=== PATIENT | male | born 1940 | race Caucasian/White ===

== ENCOUNTER 2021-01-19 11:53 | Emergency (ER) | payer OTHER ==
[~2021-01-19] VITALS: Ht 180.3 cm; Wt 65.8 kg
--- NOTE | ~2021-01-19 | EMS ---
[place] [id number] EMS Patient Care Report Name: NOAH VANCE Room #: DEP SILVANO Clement#: [id number] Admission: 01/19/21 Attend Phys: Discharge: 01/19/21 Date of : 44 Report #: [id number] THIS REPORT FOR: //name// Report Transmitted: 01/20/2021 13:18 EMS Care Summary [place], [place]/[facility] Incident [id number] @ 01/19/2021 10:56 Incident Location [address] [place] [address] Patient NOAH VANCE Male, 80 Years 1940 Patient Address [address] [place] [address] Patient History Dementia,Alzheimer's, Patient Allergies No known allergies, Patient Medications Citalopram, Donepezil, Omeprazole, Levetiracetam, Chief Complaint Upset Disposition Transported No Lights/[place] Dispatch Reason Falls Transported To [facility] Narrative Nurse at care center stated pt had been agitated because he was told that he had to go to the hospital to be evaluated. Nurse stated pt has a history of Alzheimer with a normal gcs of 14. Pt stated that he did [place] [address] EMS Patient Care Report Name: NOAH VANCE Room #: DEP [place]#: [id number] Admission: 01/19/21 Attend Phys: Discharge: 01/19/21 Date of : 44 Report #: [id number] hospital and be left alone. Pt with no other complaints to ems. Found pt standing in room with staff with no sign of distressed noted. Pt stated he was upset and wanted to be left alone with his dog and not to go to the hospital. Pt is a gcs of 14 which is pt normal loc. Transported pt to [facility] on stretcher. No changes in route and pt received by RN in ER. Initial Vitals @11:17P: 66,R: 20,BP: 124/74,Pain: 0/10,GCS: 14,SpO2: 100,Revised Trauma: 12, @11:47P: 66,R: 18,BP: 124/70,Pain: 0/10,GCS: 14,SpO2: 100,Revised Trauma: 12, Assessments @11:59MENTAL:Event Oriented,Confused,Person Oriented,SKIN:HEENT:Head/Face: No Abnormalities,Neck/Airway: No Abnormalities,LUNG SOUNDS:General: No Abnormalities,ABDOMEN:General: No Abnormalities,PELVIS//GI:No Abnormalities,EXTREMITIES:Capillary Refill: Right Upper: < 2 Sec,Left Arm: No Abnormalities,Right Arm: No Abnormalities,Left Leg: No Abnormalities,Right Leg: No Abnormalities,PULSE:Radial: 2+ Normal,NEURO:No Abnormalities,@12:08MENTAL:Event Oriented,Person Oriented,Confused,SKIN:HEENT:Head/Face: No Abnormalities,Neck/Airway: No Abnormalities,LUNG SOUNDS:General: No Abnormalities,Left Upper: No Abnormalities,Right Upper: No Abnormalities,Left Lower: No Abnormalities,Right Lower: No Abnormalities,ABDOMEN:General: No Abnormalities,Left Upper: No Abnormalities,Right Upper: No Abnormalities,Left Lower: No Abnormalities,Right Lower: No Abnormalities,PELVIS//GI:No Abnormalities,EXTREMITIES:Capillary Refill: Right Upper: < 2 Sec,Left Arm: No Abnormalities,Right Arm: No Abnormalities,Left Leg: No Abnormalities,Right Leg: No Abnormalities,PULSE:Radial: 2+ Normal,NEURO:No Abnormalities, Impression Behavioral/psychiatric episode Procedures @11:13BLS AssessmentResponse: Unchanged Timeline 10:55,Dispatch Notified 10:56,Call Received 10:56,Dispatched 10:57,En Route 11:11,On Scene 11:13,At Patient 11:13,BLS Assessment,Response: Unchanged 11:17,BP: 124/74 M,PULSE: 66,RR: 20 R,SPO2: 100 Ox,ETCO2: ,BG: ,PAIN: 0,GCS: 14, 11:37,[place] [address] EMS Patient Care Report Name: NOAH VANCE [facility] [id number] Admission: 01/19/21 Attend Phys: Discharge: 01/19/21 Date of : 44 Report #: [id number] 11:47,BP: 124/70 M,PULSE: 66,RR: 18 R,SPO2: 100 Ox,ETCO2: ,BG: ,PAIN: 0,GCS: 14, 11:50,At Destination 12:29,Call Closed Disclaimer v1.1 Copyright 2020 [employer] This EMS Care Summary contains data elements from the applicable legal record (which may be displayed differently). It is designed to provide pertinent information for the following purposes: continuity of care, clinical quality, and state data reporting. The complete legal record is available to ED staff and administrators of the receiving hospital in [employer]'s Patient Tracker. All data is provided "as is."
[2021-01-19] MEDS ORDERED: VITAMIN B-121000 MC2 SUBLING (12:05)
[2021-01-19] MEDS ORDERED: CELEXA 20 MG TA20 MG PO (12:05)
[2021-01-19] MEDS ORDERED: ARICEPT10 M1 PO (12:07)
[2021-01-19 12:15] VITALS: BP 119/64
== END 2021-01-19 13:07 ==
LOC: ER 11:53
DX: F03.90 Unspecified dementia, unspecified severity, without behavioral disturbance, psychotic disturbance, mood disturbance, and anxiety (principal); K21.9 Gastro-esophageal reflux disease without esophagitis; W18.39XA Other fall on same level, initial encounter; Y93.89 Activity, other specified; Y92.89 Other specified places as the place of occurrence of the external cause; Y99.8 Other external cause status

== ENCOUNTER 2021-01-21 09:42 | Emergency (ER) | payer OTHER ==
[~2021-01-21] VITALS: Ht 180.3 cm; Wt 65.8 kg
--- NOTE | ~2021-01-21 | EMS ---
[address] [address] EMS Patient Care Report Name: NOAH VANCE Room #: DEP SILVANO Clement#: [id number] Admission: 01/21/21 Attend Phys: Discharge: 01/21/21 Date of : 44 Report #: [id number] THIS REPORT FOR: //name// Report Transmitted: 01/23/2021 12:45 EMS Care Summary [place], [place]/[facility] Incident [id number] @ 01/21/2021 08:52 Incident Location [address] [place], [place] [id number] Patient NOAH VANCE Male, 80 Years 1940 Patient Address [address] [place], [place] [id number] Patient History Dementia,Alzheimer's, Patient Allergies No known allergies, Patient Medications Donepezil, Omeprazole, Citalopram, Levetiracetam, Chief Complaint si Disposition Transported No Lights/[place] Dispatch Reason Psychiatric Problem/Abnormal Behavior/Suicide Attempt Transported To [facility] Narrative ems met kc on scene. nh staff stated pt is upset that he cant go home and stated he wants to kill himself. nh staff stated pt also had a fall earlier this morning. nh staff stated pts family wants pt transported to [facility]. pt found [address] [address] EMS Patient Care Report Name: NOAH VANCE Room #: DEP ER Urbano#: [id number] Admission: 01/21/21 Attend Phys: Discharge: 01/21/21 Date of : 44 Report #: [id number] walking around apartment. pt alert and confused at baseline gcs 14. pt has no complaints. pt agreed to be transported to [facility]. pt is calm and cooperative. pt walked to ambulance. pt was transferred onto ems cot and was secured in a semi fowlers position without incident. pt reported neg loc. neg blood thinners. pt was transported non emergent. transport was uneventful and pt rested on ems cot. pt care was transferred to appropriate staff and ems goes back in service. Initial Vitals @09:29P: 78,R: 20,BP: 130/80,Pain: 0/10,GCS: 14,SpO2: 98,Revised Trauma: 12, @09:37P: 70,R: 20,BP: 128/80,GCS: 15,SpO2: 100,Revised Trauma: 12, Assessments @09:06MENTAL:No Abnormalities,SKIN:No Abnormalities,HEENT:Head/Face: No Abnormalities,Eyes: No Abnormalities,Neck/Airway: No Abnormalities,LUNG SOUNDS:General: No Abnormalities,Left Upper: No Abnormalities,Right Upper: No Abnormalities,Left Lower: No Abnormalities,Right Lower: No Abnormalities,ABDOMEN:General: No Abnormalities,Left Upper: No Abnormalities,Right Upper: No Abnormalities,Left Lower: No Abnormalities,Right Lower: No Abnormalities,PELVIS//GI:No Abnormalities,EXTREMITIES:Left Arm: No Abnormalities,Right Arm: No Abnormalities,Left Leg: No Abnormalities,Right Leg: No Abnormalities,PULSE:NEURO:No Abnormalities,@09:26MENTAL:No Abnormalities,SKIN:No Abnormalities,HEENT:Head/Face: No Abnormalities,Eyes: No Abnormalities,Neck/Airway: No Abnormalities,LUNG SOUNDS:General: No Abnormalities,Left Upper: No Abnormalities,Right Upper: No Abnormalities,Left Lower: No Abnormalities,Right Lower: No Abnormalities,ABDOMEN:General: No Abnormalities,Left Upper: No Abnormalities,Right Upper: No Abnormalities,Left Lower: No Abnormalities,Right Lower: No Abnormalities,PELVIS//GI:No Abnormalities,EXTREMITIES:Left Arm: No Abnormalities,Right Arm: No Abnormalities,Left Leg: No Abnormalities,Right Leg: No Abnormalities,PULSE:NEURO:No Abnormalities, Impression Behavioral/psychiatric episode Procedures @09:06ALS AssessmentResponse: UnchangedSucceeded Timeline 08:50,Call Received 08:50,Dispatch Notified 08:52,Dispatched 08:52,En Route 09:05,On Scene 09:06,At Patient 09:06,ALS Assessment,Response: UnchangedSucceeded, 09:28,Depart Scene [address] [address] EMS Patient Care Report Name: VANCENOAH Bah Room #: DEP SILVANO Clement#: [id number] Admission: 01/21/21 Attend Phys: Discharge: 01/21/21 Date of : 44 Report #: [id number] 09:29,BP: 130/80 M,PULSE: 78,RR: 20 R,SPO2: 98 Ox,ETCO2: ,BG: ,PAIN: 0,GCS: 14, 09:37,BP: 128/80 M,PULSE: 70,RR: 20 R,SPO2: 100 Ox,ETCO2: ,BG: ,PAIN: ,GCS: 15, 09:38,At Destination 09:55,Call Closed Disclaimer v1.1 Copyright 2020 [employer] This EMS Care Summary contains data elements from the applicable legal record (which may be displayed differently). It is designed to provide pertinent information for the following purposes: continuity of care, clinical quality, and state data reporting. The complete legal record is available to ED staff and administrators of the receiving hospital in [employer]'s Patient Tracker. All data is provided "as is."
[~2021-01-21 09:42] MED LIST: ARICEPT10 M1 PO; CELEXA 20 MG TA20 MG PO; VITAMIN B-121000 MC2 SUBLING
[2021-01-21 09:47] VITALS: BP 107/73
[2021-01-21] MEDS ORDERED: LEVETIRACETAM500 M1 PO (10:00)
[2021-01-21] MEDS ORDERED: NAMENDA 5 MG TAB5 M1 PO (10:01)
[2021-01-21] MEDS ORDERED: OMEPRAZOLE40 MG PO (10:01)
[2021-01-21] MEDS ORDERED: LYRICA25 MG PO (10:01)
[2021-01-21] MEDS ORDERED: DIPHENHIST25 M2 PO (10:02)
[2021-01-21] MEDS ORDERED: NORCO 10-325 T1 EACH PO (10:03)
[2021-01-21] MEDS ORDERED: FUROSEMIDE 20 M20 MG PO (10:03)
[2021-01-21] MEDS ORDERED: LORAZEPAM 0.50.5 MG PO (10:04)
[2021-01-21] MEDS ORDERED: ADVIL200 M3 PO (10:04)
[2021-01-21] MEDS ORDERED: ACETAMINOPHEN500 M1 PO (10:05)
[2021-01-21] MEDS ORDERED: RISPERDAL0.5 MG PO (10:05)
[2021-01-21] MEDS ORDERED: KLOR-CON 10 ER10 MEQ PO (10:05)
[2021-01-21] MEDS ORDERED: SENNA PLUS TAB1 EACH PO (10:06)
[2021-01-21 12:01] LABS: ABSOLUTE NEUTROPHILS 3.8 thou/uL (1.4-8.2); EOSINOPHILS 2.1 % (0.0-3.0); HEMATOCRIT 40.8 % (42.0-52.0); HEMOGLOBIN 13.6 gm/dL (14.0-18.0); LYMPHOCYTES 20.6 % (24.0-44.0); MCH 31.1 pg (26.0-34.0); MCHC 33.4 g/dL (28.0-37.0); MCV 93.2 fL (80.0-100.0); MONOCYTES 10.2 % (1.0-8.0); PLATELET COUNT 154 thou/uL (150-400); POLYS 66.1 % (36.0-66.0); RBC 4.38 mil/uL (4.50-6.00); RDW 13.1 % (10.5-14.5); WBC 5.8 thou/uL (4.0-11.0)
[2021-01-21 12:08] LABS: CALCIUM 9.1 mg/dL (8.5-10.1); POTASSIUM 3.7 mmol/L (3.5-5.1)
--- NOTE | 2021-01-22 11:31 | EKG ---
[address] [address] ELECTROCARDIOGRAM REPORT Name: NOAH VANCE Room #: DEP SILVANO Clement#: [id number] Admission: 01/21/21 Attend Phys: Discharge: 01/21/21 Date of : 44 Report #: [id number] [facility] ED Test Date: 2021-01-21 Test Time: 10:08:22 Pat Name: NOAH VANCE Department: Room: Gender: M Desk Editor: KMNicolas : 1940 Requested By: Dwayne Holt Order Number: [id number] MD: Sergio Grimes Measurements Intervals [place] Rate: 68 P: 13 AK: 188 QRS: 19 QRSD: 91 T: 50 QT: 394 QTc: 420 Interpretive Statements Sinus rhythm No previous ECG available for comparison Electronically Signed On 01-22-2021 11:31:11 CDT by Sergio Grimes [email or web address] <ELECTRONICALLY SIGNED> By: Sergio Grimes MD, [facility] 01/22/21 1131 1008 1008 Sergio Grimes MD, FACC /EPI
--- NOTE | 2021-01-22 21:50 | HC ---
[facility] [place] [address] CONSULTATION Name: NOAH VANCE Room #: DEP [facility].#: [id number] Admission: 01/21/21 Attend Phys: Discharge: 01/21/21 Date of : 44 Report #: [id number] THIS REPORT FOR: cc: Solo Richards MD, Christopher B. MD Kerstein,Leo Hays DO ~ DATE OF SERVICE: 01/21/2021 EMERGENCY ROOM CONSULTATION EMERGENCY ROOM ATTENDING: Dr. Holt ATTENDING PSYCHIATRIST: Leo Garcia DO REASON FOR CONSULTATION: Concern for dementia, self-injurious behavior. SOURCES OF INFORMATION: Interview with the patient, collateral from son and all present in the ER conversation with Dr. Holt, Emergency Room records. CHIEF COMPLAINT: Unspecified. HISTORY OF PRESENT ILLNESS: This is a 80-year-old tall male who has obvious dementia symptoms. He was brought to the Emergency Room from [facility] after a fall this morning and then head banging behavior observed by staff at the [facility]. The patient has had a difficult year and a half or so. His in 08/2019. Apparently, the patient has a history of absence seizures. He is medicated for it. This is what his fall was attributed to. He was placed at [facility] 2 weeks ago after otherwise living independently after his 's . There was allegation, he reported he wanted to . Today, the patient denied that to me. His son-in-law did not have concern that he was actively suicidal. There is not lethal means, like firearm, etc.; however, the patient is in assisted living. I did recommend to his son-in-law to be placed in a memory care. PAST MEDICAL HISTORY: Absence seizures, Parkinson's disease. PSYCHIATRIC HISTORY: Dementia. HOME MEDICATIONS: Known to be citalopram, cyanocobalamin, donepezil, Keppra, memantine, omeprazole, pregabalin, diphenhydramine, furosemide, hydrocodone, lorazepam, acetaminophen, potassium chloride, risperidone and sennosides. Several of those meds are on the Beers' list, which is the [place] [employer] list of medications that are problematic in older adults. I do not have his retirement medication list handy, but certainly ongoing evaluation risks versus the benefits. [address] [address] CONSULTATION Name: NOAH VANCE Room #: DEP SILVANO Clement#: [id number] Admission: 01/21/21 Attend Phys: Discharge: 01/21/21 Date of : 44 Report #: [id number] SOCIAL HISTORY: No history of tobacco, alcohol or recreational drug use. REVIEW OF SYSTEMS: From Dr. Holt in the ER: CONSTITUTIONAL: Denies fever, chills, malaise, or unexplained weight changes. EYES: Denies eye pain, visual change, or discharge. HENT: Denies hearing changes, ear drainage, ear infections, ear pain, neck pain or neck stiffness. RESPIRATORY: Denies cough, shortness of breath, hemoptysis, or respiratory distress. CARDIOVASCULAR: Denies chest pain, chest pain with exertion, or edema. GASTROINTESTINAL: Denies abdominal pain, nausea, vomiting, diarrhea. GENITOURINARY: Denies burning, frequency or dysuria. MUSCULOSKELETAL: Denies back pain, joint pain, muscle weakness or myalgias. SKIN: Denies rash. NEUROLOGIC: Denies weakness, headaches or loss of consciousness. Otherwise, a 10-point review in the ER was negative. Weight is 65.77 kilos, BMI 21.2. PHYSICAL EXAMINATION: SKIN: The patient had a laceration to his right lower leg, otherwise was unremarkable from the Emergency Room physician. VITAL SIGNS: In the ER, temperature 36.6, pulse 73, respirations 12, BP 107/73, O2 sat 99%. MUSCULOSKELETAL: The patient is recumbent, but on the Emergency Room gurney. MENTAL STATUS EXAMINATION: This is a well-developed, ill-appearing male, appearing older than stated age. Attention fair. Concentration limited. Speech soft, normal rate. Thought process is linear and goal directed. Thought content focused on returning to assisted living facility. Denied suicidal or homicidal ideation, auditory or visual type hallucinations. Some helplessness and hopelessness. Mood and affect were congruent, constricted. Memory not formally tested. Insight and judgment were limited. Fund of knowledge, no greater than average. DIAGNOSTIC DATA: EKG was done, which showed a QTc of 420, a rate of 70 beats per minute. LABORATORY DATA: Done in the ER are as follows: Hematology: Hemoglobin and hematocrit 13.6 and 40.8, white count 5.8, platelet count 154. Chemistry: Sodium 143, potassium 3.7, chloride 111, bicarbonate 25, anion gap 7, BUN 13, creatinine 1.0, estimated GFR is 72, glucose 92, calcium 9.1. COVID-19 PCR is pending. FORMULATION: A 80-year-old male brought in by EMS after a fall at assisted living facility. The patient has a history of dementia, perhaps [facility] [address] [place] [address] CONSULTATION Name: NOAH VANCE Room #: DEP ER Jagjit.#: [id number] Admission: 01/21/21 Attend Phys: Discharge: 01/21/21 Date of : 44 Report #: [id number] Parkinson's related fall and some concerning behaviors this morning. DIAGNOSES: At this time, major neurocognitive disorder, unspecified etiology. ADDITIONAL DIAGNOSES: Include Parkinson's disease, absence seizure disorder. FINDINGS: At this time, the patient is not imminent threat to self or others. He does require 24-hour care and supervision. This was emphasized to the family. The patient should not drive or operate dangerous machinery. At this time, the patient and family are not desiring a psychiatric admission. If there are repeat events, concerning behavior, they are encouraged to bring him back to the Emergency Room. Okay from a psychiatric standpoint to discharge. <ELECTRONICALLY SIGNED> By: Leo Garcia DO 01/22/21 2150 [id number] [id number] Leo Garcia DO /nt
== END 2021-01-21 14:09 | disposition home or self-care (01) ==
LOC: ER 09:42
PROVIDERS: Emergency Medicine
DX: F32.9 Major depressive disorder, single episode, unspecified (principal); K21.9 Gastro-esophageal reflux disease without esophagitis; Z79.899 Other long term (current) drug therapy; Z20.822 Contact with and (suspected) exposure to COVID-19

== ENCOUNTER 2021-01-26 13:53 | Emergency (ER) | payer OTHER ==
[~2021-01-26] VITALS: Ht 180.3 cm; Wt 65.8 kg
--- NOTE | ~2021-01-26 | EMS ---
[place] [address] EMS Patient Care Report Name: NOAH VANCE Room #: REG SILVANO Clement#: [id number] Admission: 01/26/21 Attend Phys: Discharge: Date of : 44 Report #: [id number] THIS REPORT FOR: //name// Report Transmitted: 01/26/2021 13:13 EMS Care Summary [place], [place]/[facility] Incident [id number] @ 01/26/2021 13:04 Incident Location [address] [place] [address] Patient NOAH VANCE Male, 80 Years 1940 Patient Address [address] [place] [address] Patient History Dementia,Alzheimer's, Patient Allergies No known allergies, Patient Medications Citalopram, Omeprazole, Levetiracetam, Donepezil, Chief Complaint aggression Disposition Transported No Lights/[place] Dispatch Reason Psychiatric Problem/Abnormal Behavior/Suicide Attempt Transported To [facility] Narrative staff reports pt to be eval at ER for increased aggression and SI. pt found ambulatory, angry about transfer. pt hits self and equipment but did not strike crew. pt refused VS and refused to put on a mask. transport w/o [facility] [address] [place] [address] EMS Patient Care Report Name: NOAH VANCE Room #: REG SILVANO Clement#: [id number] Admission: 01/26/21 Attend Phys: Discharge: Date of : 44 Report #: [id number] change. Initial Vitals @13:34GCS: 14, Assessments @13:29MENTAL:Confused,Person Oriented,Place Oriented,Other,SKIN:No Abnormalities,HEENT:Head/Face: No Abnormalities,LUNG SOUNDS:ABDOMEN:PELVIS//GI:EXTREMITIES:PULSE:NEURO:No Abnormalities, Impression Behavioral/psychiatric episode Procedures @13:29ALS AssessmentResponse: Unchanged@13:32StretcherResponse: Unchanged Timeline 13:00,Call Received 13:00,Dispatch Notified 13:04,Dispatched 13:04,En Route 13:25,On Scene 13:29,At Patient 13:29,ALS Assessment,Response: Unchanged 13:32,Stretcher,Response: Unchanged 13:34,BP: / M,PULSE: ,RR: R,SPO2: Ox,ETCO2: ,BG: ,PAIN: ,GCS: 14, 13:34,Depart Scene 13:51,At Destination 14:06,Call Closed Disclaimer v1.1 Copyright 2020 [employer] This EMS Care Summary contains data elements from the applicable legal record (which may be displayed differently). It is designed to provide pertinent information for the following purposes: continuity of care, clinical quality, and state data reporting. The complete legal record is available to ED staff and administrators of the receiving hospital in [employer] Patient Tracker. All data is provided "as is."
[~2021-01-26 13:53] MED LIST changes: +ACETAMINOPHEN500 M1 PO; +ADVIL200 M3 PO; +DIPHENHIST25 M2 PO; +FUROSEMIDE 20 M20 MG PO; +KLOR-CON 10 ER10 MEQ PO; +LEVETIRACETAM500 M1 PO; +LORAZEPAM 0.50.5 MG PO; +LYRICA25 MG PO; +NAMENDA 5 MG TAB5 M1 PO; +NORCO 10-325 T1 EACH PO; +OMEPRAZOLE40 MG PO; +RISPERDAL0.5 MG PO; +SENNA PLUS TAB1 EACH PO
[2021-01-26] MEDS ORDERED: DEPAKOTE SPRIN125 MG PO (13:58)
[2021-01-26] MEDS ORDERED: KEPPRA100 MG/1 M PO (13:59)
[2021-01-26 15:14] LABS: ABSOLUTE NEUTROPHILS 3.7 thou/uL (1.4-8.2); EOSINOPHILS 2.8 % (0.0-3.0); HEMATOCRIT 37.9 % (42.0-52.0); HEMOGLOBIN 12.7 gm/dL (14.0-18.0); LYMPHOCYTES 19.7 % (24.0-44.0); MCH 31.2 pg (26.0-34.0); MCHC 33.4 g/dL (28.0-37.0); MCV 93.2 fL (80.0-100.0); MONOCYTES 9.3 % (1.0-8.0); PLATELET COUNT 148 thou/uL (150-400); POLYS 67.2 % (36.0-66.0); RBC 4.07 mil/uL (4.50-6.00); RDW 13.2 % (10.5-14.5); WBC 5.5 thou/uL (4.0-11.0)
[2021-01-26 15:18] LABS: CALCIUM 8.5 mg/dL (8.5-10.1); POTASSIUM 3.7 mmol/L (3.5-5.1)
[2021-01-26 15:28] LABS: ALBUMIN 3.1 g/dL (3.4-5.0); MAGNESIUM 1.9 mg/dL (1.8-2.4); TOTAL BILIRUBIN 1.2 mg/dL (0.2-1.0); TOTAL PROTEIN 5.8 g/dL (6.4-8.2)
[2021-01-26 19:38] VITALS: BP 144/78
[2021-01-26] MEDS ORDERED: CELEXA 20 MG TA20 MG PO (23:11)
[2021-01-26] MEDS ORDERED: VITAMIN B-121000 MC2 IM ×2 (23:13→23:14)
[2021-01-26] MEDS ORDERED: ARICEPT10 M1 PO (23:15)
[2021-01-26] MEDS ORDERED: LEVETIRACETAM500 M1 PO (23:16)
[2021-01-26] MEDS ORDERED: OMEPRAZOLE40 MG PO (23:17)
[2021-01-26] MEDS ORDERED: NAMENDA 5 MG TAB5 M1 PO (23:17)
[2021-01-26] MEDS ORDERED: LYRICA25 MG PO (23:18)
[2021-01-26] MEDS ORDERED: SLEEP AID50 MG PO (23:19)
[2021-01-26] MEDS ORDERED: FUROSEMIDE 20 M20 MG PO (23:20)
[2021-01-26] MEDS ORDERED: NORCO 10-325 T1 EACH PO (23:21)
[2021-01-26] MEDS ORDERED: IBUPROFEN 400400 M1 PO (23:22)
[2021-01-26] MEDS ORDERED: ATIVAN0.5 M1 PO (23:23)
[2021-01-26] MEDS ORDERED: MAPAP500 MG PO (23:24)
[2021-01-26] MEDS ORDERED: KLOR-CON 1010 MEQ PO (23:25)
[2021-01-26] MEDS ORDERED: RISPERDAL0.5 MG PO (23:26)
[2021-01-26] MEDS ORDERED: SENNA PLUS TAB1 EACH PO (23:27)
--- NOTE | 2021-01-27 08:08 | EKG ---
[facility] [place] [address] ELECTROCARDIOGRAM REPORT Name: NOAH VANCE Room #: DEP SILVANO Clement#: [id number] Admission: 01/26/21 Attend Phys: Discharge: 01/26/21 Date of : 44 Report #: [id number] [facility] ED Test Date: 2021-01-26 Test Time: 15:04:22 Pat Name: NOAH VANCE Department: Room: Gender: M Direct Sales Representative: issa : 1940 Requested By: Abran Holder Order Number: [id number] MD: Sergio Grimes Measurements Intervals [place] Rate: 54 P: 35 OR: 200 QRS: 6 QRSD: 89 T: 56 QT: 439 QTc: 416 Interpretive Statements Sinus rhythm Borderline low voltage, extremity leads Compared to ECG 01/21/2021 10:08:22 No significant change Electronically Signed On 01-27-2021 8:07:54 CDT by Sergio Grimes [email or web address] <ELECTRONICALLY SIGNED> By: Sergio Grimes MD, [facility] 01/27/21 0807 1504 1504 Sergio Grimes MD, FACC /EPI
== END 2021-01-26 19:45 ==
LOC: ER 13:53
PROVIDERS: Emergency Medicine
DX: F03.90 Unspecified dementia, unspecified severity, without behavioral disturbance, psychotic disturbance, mood disturbance, and anxiety (principal); R45.1 Restlessness and agitation; Z20.822 Contact with and (suspected) exposure to COVID-19; K21.9 Gastro-esophageal reflux disease without esophagitis; G20 Parkinson's disease; Z79.899 Other long term (current) drug therapy

== ENCOUNTER 2021-01-26 16:27 | Inpatient (IN) | payer OTHER ==
[~2021-01-26 16:27] MED LIST changes: +DEPAKOTE SPRIN125 MG PO; +KEPPRA100 MG/1 M PO
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
[2021-01-26 22:30] VITALS: BP 145/91
[2021-01-26] MEDS ORDERED: CELEXA 20 MG TA20 MG PO (23:11)
[2021-01-26] MEDS ORDERED: VITAMIN B-121000 MC2 IM ×2 (23:13→23:14)
[2021-01-26] MEDS ORDERED: ARICEPT10 M1 PO (23:15)
[2021-01-26] MEDS ORDERED: LEVETIRACETAM500 M1 PO (23:16)
[2021-01-26] MEDS ORDERED: NAMENDA 5 MG TAB5 M1 PO (23:17)
[2021-01-26] MEDS ORDERED: OMEPRAZOLE40 MG PO (23:17)
[2021-01-26] MEDS ORDERED: LYRICA25 MG PO (23:18)
[2021-01-26] MEDS ORDERED: SLEEP AID50 MG PO (23:19)
[2021-01-26] MEDS ORDERED: FUROSEMIDE 20 M20 MG PO (23:20)
[2021-01-26] MEDS ORDERED: NORCO 10-325 T1 EACH PO (23:21)
[2021-01-26] MEDS ORDERED: IBUPROFEN 400400 M1 PO (23:22)
[2021-01-26] MEDS ORDERED: ATIVAN0.5 M1 PO (23:23)
[2021-01-26] MEDS ORDERED: MAPAP500 MG PO (23:24)
[2021-01-26] MEDS ORDERED: KLOR-CON 1010 MEQ PO (23:25)
[2021-01-26] MEDS ORDERED: RISPERDAL0.5 MG PO (23:26)
[2021-01-26] MEDS ORDERED: SENNA PLUS TAB1 EACH PO (23:27)
--- NOTE | 2021-01-27 00:22 | NUR ---
PATIENT ADMITTED TO FLOOR AT 1945, WAS A LITTLE UPSET BUT WAS NICE TO ME AND TO THE TECH. ABOUT A 1/2 HOUR LATER PATIENT IS IN ROOM SLAMMING HIS DOOR AND BANGING ON GAMEZ, I RUN TO PT'S ROOM AND ASK HIM WHATS GOING ON AND THAT HE HAD NEIGHBORS AND HE STATED, "I DON'T GIVE A FUCK BITCH". PATIENT STARTED TO LOOK FOR EXITS. PATIENT REFUSED ANY PO MEDICATIONS AND DR LAMB WAS CALLED FOR A ONE TIME DOSE OF 0.5 MG IM ATIVAN WHICH PATIENT TOOK WITH NO PROBLEMS. SINCE IM PATIENT HAS BEEN RESTING IN BED.
[2021-01-27 09:02] VITALS: BP 114/75
[2021-01-27 11:54] LABS: HEMATOCRIT 38.4 % (42.0-52.0); HEMOGLOBIN 13.1 gm/dL (14.0-18.0); MCH 31.7 pg (26.0-34.0); MCHC 34.1 g/dL (28.0-37.0); MCV 92.9 fL (80.0-100.0); RBC 4.13 mil/uL (4.50-6.00); RDW 13.4 % (10.5-14.5); WBC 5.4 thou/uL (4.0-11.0)
[2021-01-27 12:22] LABS: CHOLESTEROL 136 mg/dL (<200); TRIGLYCERIDE 53 mg/dL (<150); VLDL 11 mg/dL (<40)
[2021-01-27 13:06] VITALS: BP 114/75
[2021-01-27 13:38] LABS: HDL CHOLESTEROL 81 mg/dL (>40); LDL CHOLESTEROL 45 mg/dL (<100); TC:HDL 1.7 Ratio (Not establshd)
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
[2021-01-27 19:30] VITALS: BP 125/76
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
[2021-01-28 00:06] LABS: GLYCOHEMOGLOBIN (HGB A1C) 5.3 % (4.8-5.6)
[2021-01-28 09:18] VITALS: BP 143/80
[2021-01-28 10:15] VITALS: BP 143/80
--- NOTE | 2021-01-28 12:14 | NUR ---
10:51AM - Phone call to pt's daughter, Avani ([phone]). Avani had attempted earlier to visit the pt. on the floor but was informed that the floor currently has no visitors. Avani lives in [place] while her sister who is the DPOA for the pt. resides in [place]. Avani would visit the pt. at the retirement until the DPOA expressed to the retirement that the pt. could no longer have visitors. Avani feels the DPOA is beginning to be recognized for not appropriately caring for the pt which is the reason why the DPOA is not communicating with Avani and not allowing visitors. Prior to visits ending at the retirement, Avani states that the pt. had been begging her to help. The pt. expressed being lonely, becoming depressed, not getting any answers and threatening to harm self. Avani truly feels if the pt. returns to the prior placement, that the pt. will take steps to end life. When Avani has tried to get information from the retirement pertaining to the pt, the retirement would refer Avani to the DPOA. The DPOA (Rebekah) won't share any information and if she does, it has been false. Avani states the DPOA had the pt. declared incompetent while the pt. was grieving the loss of the spouse. Avani further states that although the pt's physical abilities have diminished that the pt. continued to function cognitively and that the pt. would be happy when out with her or friends prior to the DPOA ending contact. Avani states that the DPOA has expressed being overwhelmed with caring for the pt; however, she will not relinquish the DPOA to anyone else. Avani would like to be able to speak to the pt. as well as get updates. The director social service explained that a determination will be made if the pt. is oriented x4. If that is the case, then the director social service would be able to have the pt. sign a release of information allowing information to be shared with her. If not, then the DPOA would have to give permission to share information pertaining to the pt. 11:45AM - Check in with pt. Pt. was sitting in chair in his room. The pt. was pleasant and cooperative. The pt. expressed having two daughters. He referred to the DPOA, Rebekah, as the "bad daughter" and to Avani as the "good daughter". The pt. expressed concern for his dog. He was informed that the dog was with Avani. The pt. doesn't understand why the DPOA put him in a retirement. He expressed the DPOA was stealing his money and not being able to return home. The pt. wasn't oriented to time. The pt. wasn't oriented to location as the pt. asked where was he. The pt. was informed that the "good daughter" has reached out regarding him. 12:14PM - Phone call to Avani. dry kiln worker informed [facility] that the pt. was not oriented enough to sign a release of information. The director social service recommended waiting to see if the psychiatrist had a different determination once rounds are made. The director social service asked if [facility] would like for the director social service to contact the DPOA to try to obtain approval to add to the pt's contact. [facility] requested to wait until after the pt. is seen by the psychiatrist. to visit the pt. on the floor but was informed that the floor currently has no visitors.
--- NOTE | 2021-01-28 13:45 | NUR ---
Earle, "Curt", was alert and oriented to himself and that he is at the hospital; disoriented to situation and time. He was slightly less isolative this shift, than previous day but still kept to himself. He came out of his room this morning for a snack and walked the halls but was otherwise withdrawn and isolative to his room. He appears lucid at times, and others confused. He continues to believe that "a jose manuel jumped me" and that is why he is here in the hospital. He voiced frustration with his daughter reshma and continues to worry about his dog, but was given reassurance that his dog is with his daughter, Avani. He voiced grief regarding the of his and stated "I just want to ", when discussing that she was gone. He voiced frustration regarding being in the hospital and does not understand why he needs to be here. He asked multiple times if this RN could help him leave. During his frustrations he squeezed his hands in anger and stated "c'mon give me blood!", although he responded well to emotional support. He denied a plan or intent to end his own life but expressed he does not care if he were to . He took his medications crushed in yogurt this morning with encouragement, but less resistance than yesterday. He was grimacing in pain and showed this RN a scar from his right knee replacement and was given [place] PRN per MAR with effectiveness. Pt was educated that we need a UA and was given a urinal but unsure if pt is able to follow directions. Pt is currently resting in his room, will continue to monitor.
--- NOTE | 2021-01-28 17:26 | NUR ---
Phone call received from Avani regarding the pt. The SW explained that the doctor had not put in the notes at this time. Avani expressed concern as she had phone contact with the DPOA's who stated the pt. will be moved to [place]. Avani stated this would further alienate the pt. whose support system is in this area and really reinforce his idea to harm himself.
[2021-01-28 19:24] VITALS: BP 125/74
--- NOTE | 2021-01-28 23:08 | NUR ---
Pt in bed resting with eyes closed. Pt took medications in pudding. Did not require 2200 trazadone he was sleeping just fine with 50 mg dose. new arm band provided for pt did not see arm band on wrist. Pt denies SI/HI/AH/VH,
[2021-01-29 09:27] VITALS: BP 90/58
[2021-01-29 11:22] VITALS: BP 90/58
--- NOTE | 2021-01-29 14:58 | NUR ---
Earle was alert and oriented to self and place, but disoriented to situation and time. At the beginning of shift pt was frustrated because he tried to use the urinal but got his urine all over his pants. This RN assisted pt in changing and UA was later collected with assisted of SALES AND SERVICE OFFICER. During morning medication pass, pt voiced frustration with being here, and voiced wishes to "". He threw his medicine cup on the floor and then apologized, then began hitting himself in the head. Pt was redirected and due to pt's behaviors, PRN PO ativan was given with pt's morning medications. This RN crushed and put pt's medications in yogurt and pt stated "I like you so I'll take it for you". He was then compliant with medications, without difficulty. We discussed how his dog was with his daughter, Avani, and he replied "Oh good, I can now". This was further discussed and he stated "I've lost my , I'm here in hell, I just want to ". Emotional support given and pt was accepting yet resistant, but denied a plan/intent. Pt otherwise throughout the day was calm and cooperative; he was withdrawn and isolative to his room but this RN brought him to the dayroom to watch the Zyncd game which he appeared to enjoy. Pt then participated in evening group. Will continue to monitor.
--- NOTE | 2021-01-29 15:14 | NUR ---
FRANCIS contacted Dr. Haines regarding pt's ability to sign release of information to speak with who he identifies as the "good daughter", Avani. FRANCIS informed Dr. Haines that the pt. was not orientedx4 when the SW spoke to him. Dr. Haines indicated that this was also the case when she visited the patient upon admission. Dr. Haines stated that she would be available to contact the DPOA with the social work instructor on Saturday to see if the DPOA will add Avani to the pt's contacts. The SW contacted Avani and explained that the doctor did not feel the patient was oriented enough to sign the authorization and that she and the SW will attempt to contact the DPOA and have her (Avani) added. Avani expressed a lot of emotion and frustration. She is upset that her sister is the DPOA, in not being provided any information and not being able to change the situation. Avani is concerned that the DPOA intends on moving the pt. to the [place] area which will remove him away from his family and friends. Avani asked if the SW knew the plans for the pt. and the SW informed Avani that unfortunately we cannot discuss any planning regarding the pt. Check in with pt. during group. The group was about protective factors. Social supports was identified as a factor. When asked if the pt. had supportive family, he said he had one supportive daughter.
[2021-01-29 15:15] LABS: URINE BLOOD NEGATIVE (Negative); URINE CLARITY CLEAR; URINE COLOR YELLOW; URINE GLUCOSE-RANDOM* NEGATIVE (Negative); URINE KETONES 1+ (Negative); URINE LEUKOCYTES-REFLEX NEGATIVE (Negative); URINE NITRITE-REFLEX NEGATIVE (Negative); URINE PROTEIN (DIPSTICK) 1+ (Negative)
[2021-01-29 15:18] LABS: ICTOTEST (BILI CONFIRMATORY) Negative (Negative); URINE BILIRUBIN NEGATIVE (Negative)
[2021-01-29 15:37] LABS: MUCUS >6 Heavy strn/LPF (None Seen); SQUAMOUS 0-3 Few /LPF (0-3); URINE WBC-REFLEX 0-5 Rare /HPF (0-5)
[2021-01-29 15:38] LABS: BACTERIA-REFLEX None Seen /HPF (None Seen); CASTS None Seen /LPF (None Seen); CRYSTALS None Seen /LPF (None Seen); URINE RBC 1-2 Rare /HPF (NONE SEEN)
[2021-01-29 19:30] VITALS: BP 124/69
--- NOTE | 2021-01-30 00:01 | NUR ---
PATIENT SITTING IN HIS ROOM. HE IS ORIENTED TO PERSON ONLY. HIS SPEECH IS OFF TOPIC AND I AM UNABLE TO DETERMINE WHAT HE IS TALKING ABOUT. STATES THAT HE DOES NOT WANT TO TAKE HIS MEDICATIONS AND SLAMS HIS HAND ON THE MATTRESS BUT EVENTUALLY COMPLIES. PATIENT STATES THAT HE NEEDS TO USE THE RESTROOM BUT REFUSES TO HAVE ASSISTANCE. PATIENT IS UNSTEADY ON HIS FEET. STAFF REMAINED IN PATIENT ROOM UNTIL HE WAS ABLE TO RETURN TO BED. NO S/S OF DISTRESS NOTED. WILL CONTINUE TO MONITOR FOR SAFETY.
[2021-01-30 09:31] VITALS: BP 133/82
--- NOTE | 2021-01-30 11:07 | NUR ---
Assumed care from manager alliance this am. During this shift, pt was sitting in the activity area. Pt did present oriented to self, time, or place. Pt initially stated that he did not want his medications, stating "I don't want none of them." Nursing explained to pt that medications were needed to promote wellbeing and provided pt education at this time. Pt presented verbally aggresive and threw his water over himself by squeezing it, and refused medications again. Pt took off his shirt during this time, and had under garments on askew, refusing to correcting wear clothing as well when asked. Pt was provided a dose of prn haldol at this time, as the patient had thrown his cup in addition to the water. Pt was also provided prn ativan per request after displaying agitation. Pt took his medications at this time. Lung sounds clear, and bowel sounds present in all quadrants. Brusing is present on arms as has been since the time of his admission. Small yellow bruise on left side of chest. Pt denies si/hi/and hallucinations, though pt is seen talking to the air during this shift. No further concerns at this time. Will continue to monitor for patient safety and psychiatric concerns.
[2021-01-30 12:17] VITALS: BP 133/82
[2021-01-30 20:16] VITALS: BP 138/74
--- NOTE | 2021-01-31 03:42 | NUR ---
PATIENT HAS BEEN IN HIS ROOM ALL EVENING. UPON ENTERING HIS ROOM PATIENT WAS SLEEPING. HE AWOKE WHEN SPOKEN TOO. HE APPEARED SUSPICIOUS OF WHY THIS NURSE WAS TALKING TO HIM. PATIENT WAS LAYING IN BED WITH SWEATER ON AND HIS BLUE JEANS WERE ON BACKWARDS. ASSISTED PT TO BATHROOM WHERE HE VOIDED CLEAR YELLOW URINE. ASSISTED PATIENT INTO SLEEP PANTS AND SHIRT. PT HAS POOR CIRCULATION IN BLE'S. RIGHT APPEARS GREATER THAN LEFT IN COLOR DISCOLORATION. PEDAL PULSES 1+ BILATERAL. NO EDEMA. COOL TO TOUCH OF FEET. NONSLIP SOCKS PLACED ON PATIENT'S FEET. HE HAS OLD GASH WOUND HEALING ON RIGHT LOWER LEG AND RED MOTTLED SKIN AND OLD SKIN TEARS/BRUISING ON UPPER EXTREMITIES. PATIENT TOOK HIS MEDS SITTING UP, WHOLE WITH WATER. WAITED BETWEEN PILLS TO MAKE SURE HE SWALLOWED THEM. HE DID CHEW A COUPLE UP AND APPEARS TO HAVE SLIGHT DIFFICULTY SWALLOWING AT TIMES. HE HAS TO THINK ABOUT IT. HE DID NOT CHOKE OR COUGH WHEN GIVEN THOUGH. PATIENT IS A HIGH FALL RISK. HE THINKS HE IS ABLE TO WALK AND IS STEADIER THAN HE IS. PATIENT TO USE WALKER. NUVIA, HIS DPOA/DAUGHTER CALLED THIS EVENING AND WANTS SUPERINTENDENT COLLIERY TO CALL HER TODAY. SHE ALSO STATES THAT PATIENT WILL ONLY EAT HONEYNUT CHERRIOS AND A BANANA FOR BREAKFAST. SHE STATES HE HAS DONE THIS FOR YEARS. PATIENT IS VERY CONFUSED AND NEEDS ASSISTANCE IN ALL CARES. BED IN LOW POSITION AND BED ALARM IS ON. PATIENT DENIES PAIN/SI/HI. CONTINUING TO MONITOR.
[2021-01-31 09:16] VITALS: BP 156/82
--- NOTE | 2021-01-31 13:53 | NUR ---
Assumed pt care at 0700. pt was alert and oriented to person. Assessments complted, vss. active bowel sounds. Denies si/hi, denies pain at this time. Took meds whole in apple sauce, No difficulty noted. Ambulates with a walker. Pt have unsteady gait with ambulation. Calm and cooperative with care. Continent of bowel and bladder this shift. Makes needs known to staffs. At this time pt is in his room resting. Will continue to monitor.
--- NOTE | 2021-01-31 14:57 | NUR ---
01-31-2021--1300--Went to patient's room to inquire about where he was living prior to coming here. He states he was living at [facility]. He calls his daughter's "the good daughter" who is Avani and "the bad daughter" who is named as his DPOA, Rebekah. Avani related to a weekend social science research assistant that after his and while he was still grieving Rebekah had him declared incompetent and became his DPOA. Rebekah called me this date and told me she wants him discharged on . She states she already has a facility for him to go into in [place], [place] and has transportation set up for him for the ride to [place]. I explained to her that I had not had a chance to talk to the Doctor about her father and we would be discussing him tomorrow morning at the team meeting. Discharge has not been discussed yet and the patient hasn't taken advantage of the groups that are offered and may not be ready for a trip that long. I told the daughter, Rebekah that I would call her tomorrow after team meeting to let her kmow what the disposition is to be. The DPOA stated that I had already talked to the PUMP AND STILL OPERATOR from the facility and I assured her that this is the first time I was hearing about her moving him to [place] and I had not talked to any one on the phone re: her father or the move as I wasn't here over the weekend. When we hung up I immediately got a call from a Nurse Practioner, Trudy, [phone] purportedly from the receiving [facility] in [place] requesting a discharge date for the patient. I explained to her that we would be talking about the patient in the morning at team meeting and at this time I didn't have a discharge date for the patient. The above number is the fax number at the facility. I will call Rebekah (JEREL) tomorrow after team meeting. Call to eRbekah BELTRÁN and I inquired aout the transportation company that will be transporting. It is called [employer] ([phone]). I asked if this was secure transportation and she stated they would use their own w/c and wheel him onto the van. They will hook a safety belt and then another belt around him he "can't undo". I inquired if this was like "secure transportation" and she said yes and they do this all the time. I asked about the facility and she said "they" and I asked who they were and if she worked at the correction. She stated they hired a certified residential case manager and the team "they" consisted of her, a doctor, her , the residential case manager and someone from transportation and the facillity. (I inquired if Avani was a part of the patient's "team" and she stated "no".) "They" call themselves the patient's "team". I asked what Avani had done to alienate herself and Rebekah states a year and a half ago when dad's , Avani was not involved. They thought that having him here at [facility] would get her more involved and Avani called (hotlined) the state saying the patient was being mistreated. There was an investigation and it was unsubstaniated but still caused issues. The name of the facility is [facility]. There are 17 [facility] houses and each house has it's own team of one nurse, 3 aids and one social science research assistant. The SW there is Annette Villegas and ther phone jackelyn is [phone] ot [phone]. I told JEREL I would call her tomorrow after team meeting.
[2021-01-31 19:36] VITALS: BP 126/75
[2021-01-31 20:30] VITALS: BP 126/75
--- NOTE | 2021-02-01 02:28 | NUR ---
NO BEHAVIORS ALL NIGHT. BED LOCKED AND IN LOW POSITION. RESPIRATIONS EVEN. TOOK ALL MEDS CRUCHED IN APPLESAUCE WITHOUT INCIDENT. CONTINUE POC.
[2021-02-01 09:35] VITALS: BP 139/80
--- NOTE | 2021-02-01 11:02 | NUR ---
CARE OF PATIENT ASSUMED AT 0700, PATIENT IN BED WITH EYES OPENED, HE IS ALERT TO SELF, VSS, ACTIVE BOWEL SOUND WITH SOFT AND ROUNDED AMDOMEN, BREATH SOUND CLEAR, SKIN INTACT AND NO EDEMA NOTED, PATIENT TOOK MEDICATION CRUSHED WITH PUDDING, PATIENT AMBULATE ON THE ELO CHAIR, HE DENIES SI/HI, FALL PRECAUTION IN PLACE. WILL CONTINUE TO MONITOR PATIENT FOR SAFETY AND BEHAVIOR
--- NOTE | 2021-02-01 11:32 | NUR ---
02-01-2021--11:15 AM--Patient discussed this date in team meeting. Patient reportedly having behaviors (spitting, agitation, throwing water, cussing). states he can go tomorrow but they need to pick him up prior to 1300. Called Rebekah BELTRÁN and told her he can go tomorrow but need to pick him up before 1300. She states she will call transportation to see what time they will be picking him up and call me back.
--- NOTE | 2021-02-01 12:24 | NUR ---
02-01-2021--1230--Call from [facility] (Jessie--[phone]--FAX: [phone]) from the fpc. She stated the nurse can give report to Juanjo soria RN that will be taking care of him when he leaves at [phone]. She stated Rebekah wanted her to call me to let me know the numbers and that transportation will be here tomorrow (02-02-2021) between 9 and 10. Information will be faxed to the fpc.
[2021-02-01 15:24] VITALS: BP 157/75
[2021-02-01 19:25] VITALS: BP 122/82
--- NOTE | 2021-02-02 00:02 | NUR ---
PATIENT WITHDRAWN STAYIG IN HIS ROOM. HE DID TAKE HIS MEDS THIS HS WITH PUDDING. AAOX1. NO S/S OF DISTRESS NOTED. DENIES PAIN OR NEEDS. ALL SAFETY PRECAUTIONS IN PLACE. IS MORE COOPERATIVE AND IS ABLE TO MAINTAIN HIS COMPOSURE TONIGHT.
--- NOTE | 2021-02-02 07:52 | NUR ---
02-02-2021--5109: Note left from patient's RN stating "tell [facility] patient will have B12 tabs and Doctor will DC exoxaparin. COVID sent off today and patient had a portabe x-ray. Will call [facility] later this date to determine if she will be allowed to DC to them.
[2021-02-02] MEDS ORDERED: ARICEPT10 M1 PO (09:23)
[2021-02-02] MEDS ORDERED: DEPAKOTE SPRIN125 MG PO (09:24)
[2021-02-02] MEDS ORDERED: LEVETIRACE100 MG/1 M PO (09:26)
[2021-02-02] MEDS ORDERED: NAMENDA 5 MG TAB5 M1 PO (09:28)
[2021-02-02] MEDS ORDERED: PROTONIX40 M2 PO (09:30)
[2021-02-02 09:46] VITALS: BP 131/77
--- NOTE | 2021-02-02 09:53 | NUR ---
patient care assumed at 0700, patient sitting in bed awake, alert and oriented x3, he ate breakfast, assessment completed,active bowel sound with soft abdomen, breath sound clear vss, patient ambulate on walker, he denies Si/Hi, fall precaution in place, patient is discharging by 10am to [facility]
--- NOTE | 2021-02-05 21:38 | D ---
[facility] [place] [address] DISCHARGE SUMMARY Name: NOAH VANCE Room #: 518A-A DIS IN M.R.#: [id number] Admission: 01/26/21 Attend Phys: Leo Garcia DO Discharge: 02/02/21 Date of : 44 Report #: [id number] THIS REPORT FOR: cc: Solo Richards MD, Christopher B. MD Kerstein,Leo Hays DO ~ DATE OF SERVICE: 02/02/2021 INPATIENT PSYCHIATRIC DISCHARGE SUMMARY ATTENDING PSYCHIATRIST: Leo Garcia DO INSPECTOR GLASS OR MIRROR: Dr. Reed. DISCHARGE DIAGNOSES: Major neurocognitive disorder, unspecified with behavioral disturbance, improved. MEDICAL COMORBIDITIES: Include seizure disorder, on Keppra; gastroesophageal reflux disease, on Protonix. The patient is discharging to the [facility] for memory care in [place], [place]. Psychiatric and medical care will be per receiving facility. Other pertinent notes about discharge. DIET: Regular. ACTIVITY LEVEL: As tolerated. Physical therapy as recommended at the trial, needs prompting for bathing, again needs 24 x 7 memory care and is quite demented. DISCHARGE MEDICATIONS: For the alf include Depakote 500 mg oral twice per day, Sprinkles formulation, he should have a blood level in 5 days in the early a.m. He had a low Depakote level on 01/30, so we increased the 250 b.i.d. to 500 b.i.d. Trazodone 50 mg oral at bedtime p.r.n. for sleep. Donepezil 10 mg oral at bedtime for cognitive enhancement. Keppra 500 mg oral b.i.d. for seizures. Also, Lyrica 25 mg oral twice daily, I believe this was prescribed for neuropathy. Memantine 5 mg oral b.i.d. for cognitive enhancement, Protonix 40 mg oral daily for GERD, p.r.n. senna/docusate can be used for constipation. Recommend against continuing him on lorazepam. His medications were e-scribed and also the nurse from the [facility] called me, I reviewed them. LABORATORY DATA: Hematology this admission on 01/27/2021: H and H 13.1 and 38.4, white count 5.4, platelet 153. Chemistries this admission: A1c is 5.3, triglycerides 53, total cholesterol 136, LDL 45, HDL 81. TSH 0.713. Ammonia checked on 01/30/2021 less than 10. Urinalysis this admission showed a few positives, 1+ ketones, protein, some mucus. COVID-19 serology was checked on [address] [address] DISCHARGE SUMMARY Name: NOAH VANCE Room #: 518A-A DIS IN M.R.#: [id number] Admission: 01/26/21 Attend Phys: Leo Garcia DO Discharge: 02/02/21 Date of : 44 Report #: [id number] 01/29/2021 and 01/31/2021, but it was not detected. REASON FOR ADMISSION: Back on 01/27/2021 and he was admitted by Dr. Haines. The patient was sent from the facility. He had been briefly in [facility] due to agitated behavior, unsafe behavior and making suicidal statements. He admits he was not getting along with people, but denied any aggression or agitation. HOSPITAL COURSE: The patient was admitted to the Geriatric Psychiatry Unit. Dr. Haines increased his Depakote to 250 b.i.d., increased him to 500mg twice a day, started him on trazodone at bedtime p.r.n. Decreased Celexa to 10 mg daily with recommendation to taper off, which we did. The patient mainly kept to himself, typically stayed in his room, resisted going to groups throughout the admission. We did get him to be orally medication compliant. I assumed his care on 01/31/2021, by that date his sister had made both placement and transportation arrangements for him to go to the [facility] in the [facility]. I elected to not object to this, as I did not start on his case on the unit and it seemed like a reasonable plan. On the day of discharge, the patient was not suicidal or homicidal, but pleasantly confused. PHYSICAL EXAMINATION: VITAL SIGNS: Temperature 36.6, pulse 62, respirations 19, BP 131/77, O2 sat 100%. MUSCULOSKELETAL: Slow gait. Normal station. MENTAL STATUS EXAMINATION: A well-developed, older than age-appearing male appearing undernourished, weight 67.5 kilos. Attention and concentration very limited. Speech normal in rate. Thought process: Linear, limited. Thought content: Relative poverty of thought, disorganized when he did speak. He denied SI or HI, auditory, visual or tactile hallucinations. Mood and affect was okay, congruent, euthymic. Memory not formally tested. Insight and judgment impaired. Fund of knowledge well below average. Prognosis for this patient is guarded given advanced dementia and age 80. RECOMMENDATIONS: No code in the nursing facility. <ELECTRONICALLY SIGNED> By: Leo Garcia DO 02/05/21 [id number] Leo Garcia DO /nt
== END 2021-02-02 10:30 | DRG 884 ==
LOC: SBH
PROVIDERS: Hospitalist; Nurse Practitioner Family; Psychiatry & Neurology Psychiatry; ADMIT Psychiatry & Neurology Psychiatry; ATTEND Psychiatry & Neurology Psychiatry
DX: F01.51 Vascular dementia, unspecified severity, with behavioral disturbance (principal); R45.851 Suicidal ideations; F32.9 Major depressive disorder, single episode, unspecified; F41.9 Anxiety disorder, unspecified; G40.909 Epilepsy, unspecified, not intractable, without status epilepticus; K21.9 Gastro-esophageal reflux disease without esophagitis; Z66 Do not resuscitate; E11.51 Type 2 diabetes mellitus with diabetic peripheral angiopathy without gangrene; Z20.822 Contact with and (suspected) exposure to COVID-19
CPT/HCPCS: 10880